=== PATIENT | male | born 1945 | race Caucasian/White ===

== ENCOUNTER → 2019-11-08 | Outpatient (CLI) | payer MEDICARE ==
[~2019-11-08] MED LIST: ACIDOPHILUS LA1 EACH PO; ACIDOPHILUS LACT1 GM MC; ALEVE220 M1; AMARYL4 MG PO; APAP500; APAP500 PO; BENEFIBER1 EAC1 PO; CARVEDILOL3.125 MG PO; CIPROFLOXIN HC2.5 M1 PO; CLARITIN10 MG PO; COREG CR20 MG PO; COREG6.25 MG PO; FERREX 150150 MG PO; FERREX PO; GLUCOPHAGE XR500 MG PO; GLUCOPHAGE500 MG PO; HYDROCODON-ACE1 EAC7 PO; IMDUR 30 MG TAB30 M1 PO; IRON325 PO; K-DUR 20 MEQ T20 MEQ PO; LANTUS SUBQ; LASIX 20 MG TAB20 MG PO; LASIX 40 MG TAB40 M1 PO; LEVAQUIN 500 M500 M2 PO; LEVEMIR SUBQ; LIPITOR80 MG PO; LISINOPRIL2.5 MG PO; LISINOPRIL5 MG PO; LO-DOSE ASPIRIN81 M1 PO; METFORMIN HCL500 MG PO; MUCINEX600 MG PO; MULTIVITAMINS PO; NAPROSYN250 MG PO; NEURONTIN 300300 M1 PO; NIACIN 500 MG500 M1 PO; NOVOLOG100 UNIT/1 SQ; NOVOLOG100 UNIT/1 SUBQ; PEPCID AC20 M1 PO; PRILOSEC 20 MG20 MG PO; PROBIOTIC1 EAC1 PO; REQUIP 1 MG TABL1 M1 PO; SENNA PO; SENOKOT-S1 TA1 PO; SORINE 80 MG TA80 M1 PO; TAMSULOSIN HCL0.4 M1 PO; TAMSULOSIN HCL0.4 MG PO; TOPROL XL25 MG PO; ZETIA10 MG PO; ZOCOR80 MG PO; ZOSYN 4.5 GRAM4.5 GM IV
--- NOTE | 2019-11-08 11:24 | 2DMMODE ---
[place] [address] 2 D/M-MODE ECHOCARDIOGRAM Name: ANIRUDH SCHAFFER Room: [facility]#: [id number] Admission: 11/08/19 Attend Phys: Luigi Duarte, Discharge: Date of : 41 Date of Service: 11/08/19 1122 Report #: [id number] THIS REPORT FOR: cc: Marlen Goodrich Melanie A. FNP Liston, Michael J. MD [facility] ~ APPROVED REPORT Study performed: 11/08/2019 09:53:14 EXAM: Comprehensive 2D, Doppler, and color-flow Echocardiogram Patient Location: Out-Patient BSA: 2.39 HR: 80 bpm BP: 140/80 mmHg Other Information Study Quality: Good Indications Aortic Valve Disease 2D Dimensions IVSd: 12.09 (7-11mm) LVOT Diam: 21.69 (18-24mm) LVDd: 55.19 mm PWd: 12.22 (7-11mm) Ascending Ao: 37.07 (22-36mm) LVDs: 29.62 (25-40mm) Aortic Root: 29.25 mm Volumes Left Atrial Volume (Systole) LA ESV Index: 20.50 mL/m2 Aortic Valve AoV Peak Manjit.: 1.84 m/s AO Peak Gr.: 13.53 mmHg LVOT Max P.76 mmHg AO Mean Gr.: 8.21 mmHg LVOT Mean P.42 mmHg LVOT Max V: 0.83 m/s AO V2 VTI: 33.63 cm LVOT Mean V: 0.55 m/s GILBERT (VTI): 2.03 cm2 LVOT V1 VTI: 18.45 cm TDI Medial E' Manjit.: 0.11 m/[place] [address] 2 D/M-MODE ECHOCARDIOGRAM Name: ANIRUDH SCHAFFER Room: [facility]#: [id number] Admission: 11/08/19 Attend Phys: Luigi Duarte, Discharge: Date of : 41 Date of Service: 11/08/19 1122 Report #: [id number] Lateral E' Manjit.: 0.15 m/s Pulmonary Valve PV Peak Manjit.: 1.01 m/s PV Peak Gr.: 4.12 mmHg Tricuspid Valve RAP Estimate: 5.00 mmHg TR Peak Gr.: 14.54 mmHg RVSP: 19.54 mmHg PA Pressure: 19.54 mmHg Left Ventricle The left ventricle is normal size. There is normal LV segmental wall motion. Mild concentric left ventricular hypertrophy. Left ventricular systolic function is normal. LVEF is 55-60%. Transmitral Doppler flow pattern suggests restrictive physiology. Right Ventricle The right ventricle is normal size. The right ventricular systolic function is normal. Pacemaker lead is present in the right ventricle. Atria Left atrium is mildly dilated. The right atrium size is normal. Aortic Valve Aortic valve is moderately sclerotic. Mild aortic regurgitation. Mild aortic stenosis. Mitral Valve The mitral valve is normal in structure. There is no mitral valve regurgitation noted. No evidence of mitral valve stenosis. Tricuspid Valve The tricuspid valve is normal in structure. Mild tricuspid regurgitation. No pulmonary hypertension. Pulmonic Valve The pulmonary valve is normal in structure. There is no pulmonic valvular regurgitation. Great Vessels The aortic root is normal in size. IVC is normal in size and collapses >50% with inspiration. Pericardium There is [place] [address] 2 D/M-MODE ECHOCARDIOGRAM Name: ANIRUDH SCHAFFER Room: [facility]#: [id number] Admission: 11/08/19 Attend Phys: Luigi Duarte, Discharge: Date of : 41 Date of Service: 11/08/19 1122 Report #: [id number] <Conclusion> The left ventricle is normal size. Mild concentric left ventricular hypertrophy. Left ventricular systolic function is normal. LVEF is 55-60%. Transmitral Doppler flow pattern suggests restrictive physiology. Pacemaker lead is present in the right ventricle. Left atrium is mildly dilated. Aortic valve is moderately sclerotic. Mild aortic regurgitation. Mild aortic stenosis. Mild tricuspid regurgitation. No pulmonary hypertension. <ELECTRONICALLY SIGNED> By: Luigi Duarte MD, FACC 11/08/191121 21 21 Luigi Duarte MD, FACC /INF
== END ==
LOC: M.CRD 09:43
DX: I08.3 Combined rheumatic disorders of mitral, aortic and tricuspid valves (principal)

== ENCOUNTER → 2020-11-11 | Outpatient (CLI) | payer MEDICARE ==
--- NOTE | 2020-11-11 12:03 | 2DMMODE ---
[place] [address] 2 D/M-MODE ECHOCARDIOGRAM Name: ANIRUDH SCHAFFER Room: [facility]#: [id number] Admission: 11/11/20 Attend Phys: Luigi Duarte, Discharge: Date of : 41 Date of Service: 11/11/20 1202 Report #: [id number] THIS REPORT FOR: cc: Marlen Goodrich Melanie A. FNP Liston, Michael J. MD [facility] ~ APPROVED REPORT Study performed: 11/11/2020 10:40:15 EXAM: Comprehensive 2D, Doppler, and color-flow Echocardiogram Patient Location: Out-Patient BSA: 2.38 HR: 72 bpm BP: 138/78 mmHg Other Information Study Quality: Good Indications Aortic Valve Disease 2D Dimensions IVSd: 13.33 (7-11mm) LVOT Diam: 23.19 (18-24mm) LVDd: 51.80 mm PWd: 13.33 (7-11mm) Ascending Ao: 26.45 (22-36mm) LVDs: 35.39 (25-40mm) Aortic Root: 30.77 mm Volumes Left Atrial Volume (Systole) LA ESV Index: 18.70 mL/m2 Aortic Valve AoV Peak Manjit.: 1.88 m/s AO Peak Gr.: 14.10 mmHg LVOT Max P.95 mmHg AO Mean Gr.: 8.29 mmHg LVOT Mean P.49 mmHg LVOT Max V: 0.86 m/s AO V2 VTI: 37.67 cm LVOT Mean V: 0.56 m/s GILBERT (VTI): 2.04 cm2 LVOT V1 VTI: 18.23 cm Mitral Valve E/A Ratio: 0.51 [place] [address] 2 D/M-MODE ECHOCARDIOGRAM Name: ANIRUDH SCHAFFER Room: [facility]#: [id number] Admission: 11/11/20 Attend Phys: Luigi Duarte, Discharge: Date of : 41 Date of Service: 11/11/20 1202 Report #: [id number] MV Decel. Time: 81.04 ms MV E Max Manjit.: 0.49 m/s MV PHT: 23.50 ms MVA (PHT): 9.36 cm2 TDI E/Lateral E': 4.08 E/Medial E': 7.00 Medial E' Manjit.: 0.07 m/s Lateral E' Manjit.: 0.12 m/s Pulmonary Valve PV Peak Manjit.: 1.21 m/s PV Peak Gr.: 5.82 mmHg Tricuspid Valve RAP Estimate: 5.00 mmHg TR Peak Gr.: 17.57 mmHg RVSP: 22.57 mmHg PA Pressure: 22.57 mmHg Left Ventricle The left ventricle is normal size. The systolic function is preserved. There is left ventricular systolic dyssynergy consistent with line bundle branch block or paced rhythm. Mild concentric left ventricular hypertrophy. Left ventricular systolic function is normal. LVEF is 50-55%. Transmitral Doppler flow pattern suggests restrictive physiology. Right Ventricle The right ventricle is normal size. The right ventricular systolic function is normal. Pacemaker lead is present in the right ventricle. Atria The left atrium size is normal. The right atrium size is normal. Aortic Valve Moderate aortic valve sclerosis. Trace aortic regurgitation. Mild aortic stenosis. Mitral Valve The mitral valve is normal in structure. Mild mitral regurgitation. No evidence of mitral valve stenosis. Tricuspid Valve The tricuspid valve is normal in structure. [place] [address] 2 D/M-MODE ECHOCARDIOGRAM Name: ANIRUDH SCHAFFER Room: [facility]#: [id number] Admission: 11/11/20 Attend Phys: Luigi Duarte, Discharge: Date of : 41 Date of Service: 11/11/20 1202 Report #: [id number] Pulmonic Valve The pulmonary valve is normal in structure. There is no pulmonic valvular regurgitation. Great Vessels The aortic root is normal in size. IVC is normal in size and collapses >50% with inspiration. Pericardium There is no pericardial effusion. <Conclusion> The left ventricle is normal size. Mild concentric left ventricular hypertrophy. Left ventricular systolic function is normal. LVEF is 50-55%. Transmitral Doppler flow pattern suggests restrictive physiology. The systolic function is preserved. There is left ventricular systolic dyssynergy consistent with line bundle branch block or paced rhythm. Pacemaker lead is present in the right ventricle. Moderate aortic valve sclerosis. Mild aortic stenosis. Trace aortic regurgitation. Mild mitral regurgitation. Mild tricuspid regurgitation. IVC is normal in size and collapses >50% with inspiration. <ELECTRONICALLY SIGNED> By: Luigi Duarte MD, FACC 11/11/20 120 120 01 Luigi Duarte MD, FACC /INF
== END ==
LOC: M.CRD 10:56
PROVIDERS: ATTEND Internal Medicine Cardiovascular Disease
DX: I08.3 Combined rheumatic disorders of mitral, aortic and tricuspid valves (principal)

== ENCOUNTER → 2021-04-15 | Outpatient (CLI) | payer MEDICARE ==
[2021-04-15 10:17] LABS: CREATININE 1.5 mg/dL (0.6-1.3); POTASSIUM 5.7 mmol/L (3.5-5.1)
== END ==
LOC: M.LAB 09:46 → M.CT 11:00
PROVIDERS: ATTEND Surgery
DX: I65.23 Occlusion and stenosis of bilateral carotid arteries (principal); M50.323 Other cervical disc degeneration at C6-C7 level; M48.02 Spinal stenosis, cervical region; I70.8 Atherosclerosis of other arteries

== ENCOUNTER 2021-05-06 10:43 | Observation (INO) | payer MEDICARE ==
[~2021-05-06] VITALS: Ht 180.3 cm; Wt 128.3 kg
[2021-05-06] VITALS (14 sets, daily range): BP systolic 107–169; BP diastolic 67–105
--- NOTE | ~2021-05-06 | H ---
[address] [address] HISTORY AND PHYSICAL Name: ANIRUDH SCHAFFER Room: [address] [place]#: [id number] Admission: 05/06/21 Attend Phys: Luigi Duarte MD Discharge: 05/07/21 Date of : 41 Report #: [id number] THIS REPORT FOR: cc: Marlen Goodrich Melanie A. FNP [facility],Medical Records Staff ~ Please refer to the History and Physical performed in the physician's office. By: [id number] Records Staff [facility] /ELÍAS
--- NOTE | ~2021-05-06 | H ---
[address] [address] HISTORY AND PHYSICAL Name: ANIRUDH SCHAFFER Room: [address] [place]#: [id number] Admission: 05/06/21 Attend Phys: Luigi Duarte MD Discharge: 05/07/21 Date of : 41 Report #: [id number] THIS REPORT FOR: cc: Marlen Goodrich Melanie A. FNP [facility],Medical Records Staff ~ Please refer to the History and Physical performed in the physician's office. By: [id number] Records Staff [facility] /ELÍAS
[~2021-05-06 10:43] MED LIST changes: +COENZYME Q10100 MG PO; +COZAAR 50 MG TA50 M1 PO; +LIPITOR40 MG PO; +ROXIFOL-D TA500 UNIT PO; +TRESIBA100 UNIT/1 SUBQ; +XALATAN2.5 ML OPHTHALMIC
[2021-05-06 11:32] LABS: HEMATOCRIT 39.5 % (42.0-52.0); HEMOGLOBIN 13.2 gm/dL (14.0-18.0); MCH 29.1 pg (26.0-34.0); MCHC 33.4 g/dL (28.0-37.0); MCV 87.1 fL (80.0-100.0); MPV 7.6 fl. (7.2-11.1); RBC 4.53 mil/uL (4.50-6.00); RDW-CV 13.9 % (10.5-14.5); WBC 6.3 thou/uL (4.0-11.0)
[2021-05-06 11:45] LABS: ANION GAP 11 mmol/L (7-16); BUN 21 mg/dL (7-18); CALCIUM 8.9 mg/dL (8.5-10.1); CHLORIDE 101 mmol/L (98-107); CO2 26 mmol/L (21-32); CREATININE 1.4 mg/dL (0.6-1.3); GLUCOSE 135 mg/dL (70-99); POTASSIUM 5.1 mmol/L (3.5-5.1); SODIUM 138 mmol/L (136-145)
[2021-05-06 11:48] LABS: APTT 26.6 Seconds (25.0-31.3); INR 1.1; PROTIME 11.3 Seconds (9.20-11.50)
[2021-05-06 11:49] LABS: ALBUMIN 4.2 g/dL (3.4-5.0); ALKALINE PHOSPHATASE 68 U/L (46-116); CHOLESTEROL 115 mg/dL (<200); HDL CHOLESTEROL 26 mg/dL (>40); LDL CHOLESTEROL 67 mg/dL (<100); SGOT 21 U/L (15-37); SGPT 35 U/L (30-65); TC:HDL 4.4 Ratio (Not establshd); TOTAL BILIRUBIN 0.7 mg/dL (<0.1-1.0); TOTAL PROTEIN 7.9 g/dL (6.4-8.2); TRIGLYCERIDE 110 mg/dL (<150); VLDL 22 mg/dL (<40)
[2021-05-06 11:50] LABS: SERUM ASSESSMENT Clear
--- NOTE | 2021-05-06 17:50 | EKG ---
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1945 Requested By: Luigi Duarte Order Number: [id number] Reading MD: Luigi Duarte Measurements Intervals [place] Rate: 65 P: RI: 268 QRS: 47 QRSD: 156 T: 79 QT: 481 QTc: 501 Interpretive Statements Atrial-paced complexes Prolonged RI interval Left bundle branch block compared to ECG 12/14/2015 07:51:28 No significant changes noted Electronically Signed On 05-06-2021 17:50:38 CDT by Luigi Duarte [email or web address] <ELECTRONICALLY SIGNED> By: Luigi Duarte MD, FACC 05/06/21 1750 1158 1158 Luigi Duarte MD, [facility] /EPI
--- NOTE | 2021-05-06 17:53 | EKG ---
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
--- NOTE | 2021-05-06 18:25 | NUR ---
admit post heart cath to rm 224 via bed telephone report given prior to arrival r benjamin perez c/d/i denies pain small void
[2021-05-07] VITALS: BP 134/56
--- NOTE | 2021-05-07 02:28 | NUR ---
PT ALERT ORIENTED. PT UP WITH ASSIST POST CATH. R MARYCARMEN JOSEPH C/D/I. FORM CARPENTER TRACING A-PACED. IVF INFUSING.
[2021-05-07 04:00] VITALS: BP 122/53
[2021-05-07 04:43] LABS: HEMOGLOBIN 12.6 gm/dL (14.0-18.0); MCH 29.7 pg (26.0-34.0); MCHC 34.1 g/dL (28.0-37.0); MPV 8.1 fl. (7.2-11.1); RBC 4.25 mil/uL (4.50-6.00); RDW-CV 14.2 % (10.5-14.5); WBC 7.4 thou/uL (4.0-11.0)
[2021-05-07 05:15] LABS: ALBUMIN 3.7 g/dL (3.4-5.0); CALCIUM 8.6 mg/dL (8.5-10.1); CREATININE 1.3 mg/dL (0.6-1.3); TOTAL BILIRUBIN 0.7 mg/dL (<0.1-1.0)
[2021-05-07 05:18] LABS: POTASSIUM 4.1 mmol/L (3.5-5.1)
[2021-05-07] MEDS ORDERED: EFFIENT10 MG PO (07:16)
[2021-05-07 08:49] VITALS: BP 122/53
[2021-05-07 08:52] VITALS: BP 122/53
--- NOTE | 2021-05-07 10:52 | EKG ---
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1945 Requested By: Luigi Duarte Order Number: [id number] Leon MD: Michael Perez Measurements Intervals [place] Rate: 66 P: IN: 230 QRS: 31 QRSD: 156 T: 117 QT: 468 QTc: 491 Interpretive Statements Atrial-paced rhythm with first-degree AV block Left bundle branch block Compared to ECG 05/06/2021 14:04:14 Left bundle-branch block persists Electronically Signed On 05-07-2021 10:52:39 CDT by Michael Perez [email or web address] <ELECTRONICALLY SIGNED> By: Michael Perez MD, [facility] 05/07/21 1052 0 0 Michael Perez MD, [facility] /EPI
[2021-05-07 12:00] VITALS: BP 127/58
--- NOTE | 2021-05-08 10:58 | CARD ---
[address] [address] CARDIAC CATH REPORT Name: ANIRUDH SCHAFFER Bernard Room: [address] [place]#: [id number] Admission: 05/06/21 Attend Phys: Luigi Duarte MD Discharge: 05/07/21 Date of : 41 Report #: [id number] THIS REPORT FOR: cc: Marlen Goodrich Melanie A. FNP Holkins, John M. MD [facility] ~ APPROVED REPORT Study performed: 05/06/2021 11:57:26 Patient Details Patient Status: Out-Patient Room #: The patient is a 76 year-old male Event Personnel Luigi Duarte Iap Displays Analyst, Michale Perez Process Laboratory Specialist, Eloina Delcid RN RN, Olivia Lopez RTR Monitor, Lee Burk RTR Scrub Procedures Performed Art Access - R femoral artery Left Heart Cath Coronaries, Bypass Grafts MICHAEL Revasc Graft Single CIRC Hemostasis w/ Angioseal Admission/Lab Medications/Medications given during procedure Lidocaine Subcut 14 ml, Oxygen Nasal cannula 2 l per min, 0.9% Sodium Chloride IV 75 ml per hr, Angiomax IV 19 ml, Angiomax Drip IV 43.57 ml per hr, Effient PO 60 mg Procedure Narrative The patient was brought electively to the Cardiac Catheterization Laboratory and was prepped and draped in a sterile manner. The right femoral was infiltrated with 2% Lidocaine subcutaneous anesthesia. A [place] 6 FR sheath was inserted into the right femoral artery. Coronary angiography was performed using coronary diagnostic catheters. The right coronary system was accessed and visualized with a Diagnostic 6 Fr JR 4 catheter. The left coronary system was accessed and visualized with a Diagnostic 6 Fr AL 1 catheter. The left ventricle was accessed and visualized with a Diagnostic 6 Fr Pigtail catheter. Left ventricular/Aortic Valve gradient assessed via catheter pullback. Left ventriculogram was performed in ROSAS projection. Pre-demployment femoral angiogram was performed . Closure device was deployed with a Fr Angioseal STS 6Fr. [place] [address] CARDIAC CATH REPORT Name: ANIRUDH SCHAFFER Bernard Room: [address]#: [id number] Admission: 05/06/21 Attend Phys: Luigi Duarte MD Discharge: 05/07/21 Date of : 41 Report #: [id number] tolerated the procedure well and there were no complications associated with the procedure. There was no hematoma. The SVG graft to the Circ and the GARCIA graph were accessed and visualized using a Diagnostic 6 Fr JR 4 catheter. The SVG graft to the RCA was accessed and visualized using a Diagnostic 6 Fr MPA catheter. Intraoperative Conscious Sedation No Sedation was given. Case start was 12:22 and case end was 13:40. Fluoro Time: 29.2 minutes Dose: DAP [id number] cGycm2 4586 mGy Contrast Type and Amount: Omnipaque 150 ml [place] Artery Percent Stenosis A GARCIA graft to the distal left anterior descending coronary artery is widely patent with good distal anastomoses. A saphenous vein graft to the second obtuse marginal branch is widely patent with good proximal and distal anastomoses. There were sequential focal 80% and tubular 80% stenoses in the second marginal branch of the circumflex which fills in retrograde fashion and then supplies the distal circumflex A saphenous vein graft to the distal right coronary artery is widely patent with good proximal and distal anastomoses. Diagnostic Cath Left Main The left main coronary artery is mildly plaqued and trifurcates into a left anterior descending, intermediate ramus and circumflex coronary artery. LAD The left anterior descending coronary artery has a 90% proximal stenoses. The mid vessel appears diffusely diseased followed by 70% stenoses. Distally the vessel is filled by a GARCIA graft. There is a 70% apical stenoses noted. Diagonal 1 A small first diagonal branch is moderately diffusely plaque without acute stenoses. Diagonal 2 A moderate-sized second diagonal branch is mildly plaqued. Circumflex The circumflex coronary artery exhibits subtotal occlusion at the ostium. The proximal portion appears diffusely diseased. Prior to the takeoff of an obtuse marginal branch the vessel is again subtotally occluded. OM2 A large branch second obtuse marginal branch is grafted. Distally the vessel is free of significant disease. Proximal to the insertion of the graft there is a 90% stenosis. The distal obtuse marginal and circumflex artery [place] [address] CARDIAC CATH REPORT Name: DANIELARACELISANIRUDH Room: [address] [place]#: [id number] Admission: 05/06/21 Attend Phys: Luigi Duarte MD Discharge: 05/07/21 Date of : 41 Report #: [id number] OM3 A third obtuse marginal branch appears free of significant disease. Right Coronary The right coronary artery is totally occluded proximally. The mid and distal vessel are not visualized. R PDA The PDA posterior lateral branch is grafted distally and free of significant disease. RPLV The PDA posterior lateral branch is grafted distally and free of significant disease. Left Ventriculography The left ventricle is normal in size with Mildly reduced contractility. The left ventricular ejection fraction is estimated to be 45-50%. Left ventricular wall motion abnormalities are present. There appears to be mild hypokinesis of the basal to distal inferior wall. Hemodynamics The aortic pressure is 155/60 mmHg with a mean of 81 mmHg. The left ventricular pressure is 164/15 mmHg with a mean of mmHg. The left ventricular end diastolic pressure is 25 mmHg. PCI Technique Lesion Anticoagulation was achieved with Angiomax Drip. Patient was preloaded with Angiomax IV 19 ml. Percutaneous coronary intervention was performed on the Second marginal branch of the circumflex via a saphenous vein graft. The lesion stenosis prior to intervention was 80% with CECILIA 3 flow. A 6F AL 1 Guide Catheter was used to engage the left ostium. BALLOON DILATION A Balloon catheter Mini Trek RX 2.0 X 12 was inserted and inflated up to 8.00atm for 7seconds. Additional Inflation: 14.00atm for 10seconds. Additional Inflation: 18.00atm for 13seconds. STENT DEPLOYMENT A drug-eluting stent Denis RX Stent 2.0X12mm was inserted and inflated up to 12.00atm for 7seconds. Additional Inflation: 16.00atm for 7seconds. Additional Inflation: 19.00atm for 14seconds. A drug-eluting stent Windsor RX Stent 2.0 x 8 mm was inserted and inflated up to 16 AJITH for 8 seconds and 18 AJITH for 4 seconds. POST STENT DEPLOYMENT BALLOON DILATION A Balloon catheter Trek RX 2.25 X 8 was inserted and inflated up to 18.00atm for 4seconds. Additional Inflation: 18.00atm for 8seconds. [place] [address] CARDIAC CATH REPORT Name: ANIRUDH SCHAFFER Room: [address] [place]#: [id number] Admission: 05/06/21 Attend Phys: Luigi Duarte MD Discharge: 05/07/21 Date of : 41 Report #: [id number] Final angiography reveals 10 % stenosis with CECILIA 3 flow. Conclusion 1. Three-vessel coronary artery disease as outlined above. 2. Patent GARCIA graft to the LAD. 3. Patent saphenous vein graft to the second obtuse marginal branch, but with 80% focal and 80% tubular stenosis of the second marginal branch which filled retrogradely and then supplied the distal circumflex 4. Patent saphenous vein graft to the right coronary artery. 5. Mildly decreased left ventricular systolic dysfunction as outlined above. 6. Elevated left ventricular end-diastolic pressure consistent with acute on chronic diastolic heart failure. 7. Significant stenoses involving the proximal second obtuse marginal branch as noted above 8. Successful PCI to the second marginal branch of the circumflex via the saphenous vein graft to the circumflex with deployment of 2 stents at the sites of 80% focal and 80% tubular stenosis with 0 and 10% residual narrowings and CECILIA-3 flow to the distal circumflex Recommendations Cardiac Risk Reduction Program 1. Continue aggressive risk factor modification. 2. Percutaneous coronary intervention to second obtuse marginal branch. Medications Administered Aspirin (any) Prasugrel Diagnostic Cath Approved by: Luigi Duarte MD Date/Time: 05/08/2021 10:57:10 <ELECTRONICALLY SIGNED> By: Michael Perez MD, [facility] 05/08/21 1058 1058 1058Joema Perez MD, [facility] /INF
--- NOTE | 2021-05-08 14:38 | D ---
[address] [address] DISCHARGE SUMMARY Name: ANIRUDH SCHAFFER Room: [address] [place]#: [id number] Admission: 05/06/21 Attend Phys: Luigi Duarte MD Discharge: 05/07/21 Date of : 41 Report #: [id number] THIS REPORT FOR: cc: Marlen Goodrich Melanie A. FNP Liston, Michael J. MD [facility] ~ DATE OF DISCHARGE: 05/07/2021 INDICATIONS: Coronary artery disease and progress angina. DISCHARGE DIAGNOSES: 1. Unstable angina. 2. Coronary artery disease. 3. Hypertension. 4. Pure hyperlipidemia. 5. Paroxysmal atrial fibrillation. 6. Sick sinus syndrome. 7. Status post pacemaker placement remotely. PROCEDURES DURING HOSPITALIZATION: 1. Left heart catheterization. 2. Coronary angiography. 3. Percutaneous coronary intervention to the second obtuse marginal branch through the saphenous vein graft to the second obtuse marginal branch. HOSPITAL COURSE: The patient was brought to the hospital for heart catheterization after complaining of increasing chest pain. He was found to have critical stenoses involving the second obtuse marginal branch which was approached via the saphenous vein graft to the second obtuse marginal branch for drug-eluting stent placement x 2 with excellent result. On catheterization, the saphenous vein graft to the second obtuse marginal was widely patent. The GARCIA graft to the LAD was widely patent and a saphenous vein graft to the distal right coronary artery was widely patent. The patient tolerated the procedure well without complication. He was started on dual antiplatelet therapy in the form of Effient 10 mg daily and aspirin 81 mg daily. He will follow up in the office in 4-6 weeks. <ELECTRONICALLY SIGNED> By: Luigi Duarte MD, [facility] 05/08/21 1438 0621 [id number] Duarte MD, FACC /nt
== END 2021-05-07 11:30 | disposition home or self-care (01) ==
LOC: M.CL 10:43 → M.TBA-CV 14:00 → M.2W 18:28
PROVIDERS: ADMIT Internal Medicine Cardiovascular Disease; ATTEND Internal Medicine Cardiovascular Disease
DX: I25.110 Atherosclerotic heart disease of native coronary artery with unstable angina pectoris (principal); Z20.822 Contact with and (suspected) exposure to COVID-19; E78.00 Pure hypercholesterolemia, unspecified; I48.0 Paroxysmal atrial fibrillation; I49.5 Sick sinus syndrome; I10 Essential (primary) hypertension; Z95.0 Presence of cardiac pacemaker; Z79.899 Other long term (current) drug therapy; Z79.82 Long term (current) use of aspirin

== ENCOUNTER 2021-05-18 15:23 | Emergency (ER) | payer MEDICARE ==
[~2021-05-18] VITALS: Ht 182.9 cm; Wt 128.8 kg
[~2021-05-18 15:23] MED LIST changes: +EFFIENT10 MG PO
[2021-05-18 15:57] LABS: ABSOLUTE EOSINOPHILS 0.4 thou/uL (0.0-0.7); ABSOLUTE LYMPHOCYTES 1.8 thou/uL (0.8-5.3); ABSOLUTE MONOCYTES 0.5 thou/uL (0.0-1.2); BASOPHILS 0.3 %; EOSINOPHILS 5.2 %; HEMATOCRIT 37.3 % (42.0-52.0); HEMOGLOBIN 12.6 gm/dL (14.0-18.0); LYMPHOCYTES 27.2 %; MCH 29.8 pg (26.0-34.0); MCHC 33.8 g/dL (28.0-37.0); MCV 88.2 fL (80.0-100.0); MPV 7.8 fl. (7.2-11.1); NUCLEATED RBCS 0 /100WBC; PLATELET COUNT* 179 thou/uL (150-400); POLYS 59.3 %; RBC 4.24 mil/uL (4.50-6.00); RDW-CV 14.2 % (10.5-14.5); WBC 6.8 thou/uL (4.0-11.0)
[2021-05-18 16:06] LABS: CALCIUM 8.8 mg/dL (8.5-10.1); CREATININE 1.6 mg/dL (0.6-1.3); POTASSIUM 5.1 mmol/L (3.5-5.1)
[2021-05-18 16:10] LABS: ALBUMIN 4.2 g/dL (3.4-5.0); TOTAL BILIRUBIN 0.5 mg/dL (<0.1-1.0); TOTAL PROTEIN 7.8 g/dL (6.4-8.2)
[2021-05-18] MEDS ORDERED: ZOFRAN ODT4 MG DISSOLVE (17:50)
[2021-05-18] MEDS ORDERED: HYDROCODON-ACE1 EAC7 PO (17:50)
[2021-05-18 18:15] VITALS: BP 148/62
--- NOTE | 2021-05-19 11:48 | EKG ---
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1945 Requested By: Jose Guadalupe Avitia Order Number: [id number] MD: Michael Perez Measurements Intervals [place] Rate: 69 P: TX: 246 QRS: 33 QRSD: 159 T: 107 QT: 481 QTc: 516 Interpretive Statements Atrial-paced complexes Prolonged [place] interval Left bundle branch block Compared to ECG 05/07/2021 09:21:35 First degree AV block persists Electronically Signed On 05-19-2021 11:47:29 CDT by Michael Perez [email or web address] <ELECTRONICALLY SIGNED> By: Michael Perez MD, [facility] 05/19/21 1147 1607 1607 Michael Perez MD, [facility] /EPI
== END 2021-05-18 18:15 | disposition home or self-care (01) ==
LOC: M.ERS 15:23
PROVIDERS: Emergency Medicine Emergency Medical Services
DX: R10.815 Periumbilic abdominal tenderness (principal); R10.813 Right lower quadrant abdominal tenderness; R10.814 Left lower quadrant abdominal tenderness; I10 Essential (primary) hypertension; K21.9 Gastro-esophageal reflux disease without esophagitis; E11.9 Type 2 diabetes mellitus without complications; Z95.0 Presence of cardiac pacemaker; Z98.890 Other specified postprocedural states; Z88.5 Allergy status to narcotic agent